=== PATIENT | female | born 1975 | race Caucasian/White ===

== ENCOUNTER 2016-10-30 12:09 | Emergency (ER) | payer BC ==
[2016-10-30 12:28] VITALS: BP 140/78
--- NOTE | 2016-10-30 13:03 | UC ---
Lower Extremity/Ankle HPI - HPI Summary HPI Summary: complain tof right foot pain slipped last night on some stairs and hurt hurt right foot consatnt aching burning pain top of foot and lateral side of ankle ambulating increases the pain resting reduces the apin, used ice with relief hasn't taken any medication for pain - History of Current Complaint Chief Complaint: UCLowerExtremity Stated Complaint: RIGHT FOOT INJURY Hx Obtained From: Patient Hx Last Menstrual Period: 10/07/16 - Allergies/Home Medications Allergies/Adverse Reactions: Allergies Allergy/AdvReac Type Severity Reaction Status Date / Time No Known Allergies Allergy Verified 10/30/16 12:22 Home Medications: Home Medications Minocycline HCl 100 mg PO ONCE 10/30/16 [History Confirmed 10/30/16] PMH/Surg Hx/FS Hx/Imm Hx Previously Healthy: Yes Psychological History: Anxiety, Depression - Surgical History Surgical History: Yes Surgery Procedure, Year, and Place: Tubal ligation 2001 - Family History Known Family History: Negative: Cardiac Disease, Hypertension, Diabetes - Social History Occupation: Employed Full-time Lives: With Family Alcohol Use: Weekly Substance Use Type: None Smoking Status (MU): Current Some Day Smoker Type: Cigarettes Amount Used/How Often: occasional Length of Time of Smoking/Using Tobacco: several years Cessation Counseling: Patient Advised to Stop Review of Systems Constitutional: Negative Skin: Negative Eyes: Negative ENT: Negative Respiratory: Negative Cardiovascular: Negative Gastrointestinal: Negative Genitourinary: Negative Motor: Negative Neurovascular: Negative Musculoskeletal: Other: - right foot pain Neurological: Negative Psychological: Negative All Other Systems Reviewed And Are Negative: Yes Physical Exam Triage Information Reviewed: Yes Appearance: No Pain Distress, Well-Nourished Vital Signs: Initial Vital Signs Temp 97.2 F 10/30/16 12:23 Pulse 73 10/30/16 12:23 Resp 16 10/30/16 12:23 BP 140/78 10/30/16 12:23 Pulse Ox 98 10/30/16 12:23 Vital Signs Reviewed: Yes Eyes: Positive: Conjunctiva Clear ENT: Positive: Pharynx normal, TMs normal Neck: Positive: No Lymphadenopathy Respiratory: Positive: Lungs clear, Normal breath sounds, No respiratory distress, No accessory muscle use Cardiovascular: Positive: RRR, No Murmur, Pulses Normal Abdomen Description: Positive: Nontender, Soft Bowel Sounds: Positive: Present Musculoskeletal: Positive: Other: - RLE- tenderness edema and eccymosis over 3rd 4th 5th metarsals no pain with inversionor eversion, no edema in ankle Neurological: Positive: Alert Psychological: Positive: Normal Response To Family Skin Exam: Normal Lower Extremity Course/Dx - Differential Dx/Diagnosis Differential Diagnosis/HQI/PQRI: Fracture (Closed), Sprain, Strain Provider Diagnoses: right foot sprain Discharge - Discharge Plan Condition: Stable Disposition: HOME Patient Education Materials: RICE Therapy (ED), Foot Sprain (ED) Referrals: Radha Parkinson MD [Primary Care Provider] - Additional Instructions: Increase fluids and rest Take acetaminophen or ibuprofen for fever or pain Please review your discharge instructions. If your symptoms do not improve please call your primary care provider or return to urgent care.
--- NOTE | 2016-10-30 13:35 | RAD ---
INDICATION: Left foot injury COMPARISON: None TECHNIQUE: AP, lateral, and oblique views were obtained. FINDINGS: The bony structures, joint spaces, and soft tissues are normal for age. IMPRESSION: NEGATIVE EXAMINATION.
== END 2016-10-30 13:51 | disposition home or self-care (01) ==
LOC: UCCORT 12:09
DX: S93.601A Unspecified sprain of right foot, initial encounter (principal); W10.8XXA Fall (on) (from) other stairs and steps, initial encounter; F17.210 Nicotine dependence, cigarettes, uncomplicated
CPT/HCPCS: 99201; G0463

== ENCOUNTER 2019-03-12 14:56 | Emergency (ER) | payer BC ==
[2019-03-12 15:35] VITALS: BP 121/71
--- NOTE | 2019-03-12 15:43 | UC ---
Back Pain HPI - HPI Summary HPI Summary: Patient is a 44yo female presenting with b/l lower back pain x6 months. 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 Denies specific injury or trauma. Describes pain as constant ache and spasming that waxes and wanes and it worse with exercising and prolonged sitting. Notes radiating pain down both legs and into upper back at random times. Denies incontinence. Notes pain has gradually worsened despite chiropractor appts twice weekly for 4 months and massage therapy. Patient states she is going on vacation soon and just wants to "make sure nothing is seriously wrong." - History of Current Complaint Chief Complaint: UCBackPain Stated Complaint: LOWER BACK PAIN X 6 MONTHS Hx Last Menstrual Period: 02/25/19 Onset/Duration: Gradual Onset - lasting months Timing: Constant Severity Initially: Mild Severity Currently: Mild Pain Intensity: 3 Pain Scale Used: 0-10 Numeric - Allergies/Home Medications Allergies/Adverse Reactions: Allergies Allergy/AdvReac Type Severity Reaction Status Date / Time SEASONAL Allergy Sneezing Uncoded 03/12/19 15:28 Home Medications: Home Medications Naproxen Sodium [Aleve] 2 tab PO Q8H 03/12/19 [History Confirmed 03/12/19] PMH/Surg Hx/FS Hx/Imm Hx Previously Healthy: Yes - Surgical History Surgical History: Yes Surgery Procedure, Year, and Place: Tubal ligation 2001 - Family History Known Family History: Negative: Cardiac Disease, Hypertension, Diabetes - Social History Alcohol Use: Weekly Substance Use Type: None Smoking Status (MU): Former Smoker Type: Cigarettes Amount Used/How Often: occasional Length of Time of Smoking/Using Tobacco: several years When Did the Patient Quit Smoking/Using Tobacco: 2016 Review of Systems All Other Systems Reviewed And Are Negative: No Respiratory: Positive: Negative Cardiovascular: Positive: Negative Gastrointestinal: Positive: Negative Motor: Positive: Negative Neurovascular: Positive: Negative Musculoskeletal: Positive: Arthralgia - lower back. Negative: Decreased ROM, Edema Neurological: Positive: Negative. Negative: Weakness, Paresthesia, Numbness Physical Exam Triage Information Reviewed: Yes Appearance: Well-Appearing, No Pain Distress, Well-Nourished Vital Signs: Initial Vital Signs Temp 98.5 F 03/12/19 15:29 Pulse 65 03/12/19 15:29 Resp 16 03/12/19 15:29 BP 121/71 03/12/19 15:29 Pulse Ox 99 03/12/19 15:29 Vital Signs Reviewed: Yes Eyes: Positive: Conjunctiva Clear ENT: Positive: Hearing grossly normal Neck: Positive: Supple Respiratory Exam: Normal Respiratory: Positive: Lungs clear, Normal breath sounds, No respiratory distress Cardiovascular Exam: Normal Cardiovascular: Positive: RRR Musculoskeletal: Positive: Strength Intact, ROM Intact, No Edema, Other: - mild tenderness to palation noted of L and R lower back. no midline tenderness Neurological: Positive: Alert Psychological: Positive: Age Appropriate Behavior Skin Exam: Normal Diagnostics - Radiology lumbarsacral Radiology Interpretation Completed By: Radiologist Summary of Radiographic Findings: IMPRESSION: LEFT NEPHROLITHIASIS DEGENERATIVE DISC DISEASE AND OSTEOARTHRITIS MOST PRONOUNCED ALONG THE LOWER LUMBAR SPINE. Back Pain Course/Dx - Course Course Of Treatment: Discussed osteoarthritis and DJD findings on xray with patient. Instructed to continue with symptomatic treatment and to take flexeril for spasms. Educated on flexeril and possible side effect of drowsiness and instructed not to drive while taking it. Directed to follow-up with orthopedics for further evaluation. Patient voiced understanding and agreed with the treatment plan. - Differential Dx/Diagnosis Provider Diagnosis: Osteoarthritis, Degenerative joint disease (DJD) of lumbar spine, Spasm of muscle of lower back Discharge ED - Sign-Out/Discharge Documenting (check all that apply): Patient Departure All imaging exams completed and their final reports reviewed: Yes - Discharge Plan Condition: Stable Disposition: HOME Patient Education Materials: Degenerative Disc Disease (ED), Osteoarthritis (ED ) Referrals: Suleiman Willard MD [Medical Doctor] - As Soon As Possible Additional Instructions: As discussed, your xrays revealed osteoarthritis and degenerative disc disease of your lumbar spine. You may take the Flexeril as prescribed for back muscle spasms. You may also continue to heat and take aleve as directed for pain relief. Follow up with the orthopedic referral listed below for further evaluation. - Billing Disposition and Condition Condition: STABLE Disposition: Home
== END 2019-03-12 17:14 | disposition home or self-care (01) ==
LOC: UCCORT 14:56
DX: M47.896 Other spondylosis, lumbar region (principal); M62.830 Muscle spasm of back; N20.0 Calculus of kidney; Z91.09 Other allergy status, other than to drugs and biological substances; Z87.891 Personal history of nicotine dependence
CPT/HCPCS: 72110; 99212; G0463